=== PATIENT | male | born 1985 | race Caucasian/White ===

== ENCOUNTER 2016-07-06 18:29 | Emergency (ER) | payer SELFPAY ==
[~2016-07-06] VITALS: Ht 180.3 cm; Wt 70.4 kg
[2016-07-06] MEDS ORDERED: MYCOSTATIN 100,60 ML PO (20:28)
[2016-07-06 20:38] VITALS: BP 106/76
== END 2016-07-06 20:38 | disposition home or self-care (01) ==
LOC: EME 18:29
DX: B37.0 Candidal stomatitis (principal); F17.200 Nicotine dependence, unspecified, uncomplicated
CPT/HCPCS: 99281; 99283